=== PATIENT | male | born 1990 | race Caucasian/White ===

== ENCOUNTER 2019-12-22 14:32 | Emergency (ER) | payer BC, SELFPAY ==
[2019-12-22 14:33] VITALS: BP 148/98; PULSE 67; RESP 12; TEMP 36.8; O2SAT 100; BMI 25.7
--- NOTE | 2019-12-22 14:51 | XR_ITS ---
PROCEDURE: XR HAND RT MIN 3V Patient Age:29Y CLINICAL INDICATION: injury hand pain. Injury right hand 3 days ago pain swelling persist. COMPARISON: No exams were available for comparison FINDINGS: Right hand AP lateral and oblique views performed: Right hand reveals no no fracture or dislocation. No lytic or blastic change. There is normal mineralization. The joint spaces are well-preserved. No significant degenerative/arthritic changes. No erosive changes evident. . There is soft tissue throughout the hand-most evident on the lateral view overlying the dorsal aspect of the hand IMPRESSION: No acute findings. . Right hand intact no fracture Dictated by: Cleve Real MD 12/22/2019 17:15 Electronically signed by Cleve Real MD in [place] 12/22/2019 17:15
--- NOTE | 2019-12-22 14:53 | HMH.EDUTC ---
[facility] [place] Clinical Impression: Hand sprain Qualifiers: Encounter type: initial encounter Laterality: right Qualified Code(s): S63.91XA - Sprain of unspecified part of right wrist and hand, initial encounter Disposition: Home, Self-Care Condition on Discharge: Good Instructions: Sprain, How To Perform RICE (Rest, Ice, Compress, Elevate) Additional Instructions: *RICE, Rest the extremity, Ice 15-20 minutes 3-4 times daily, Compress- wear the david wrap as discussed as much as possible to help reduce swelling and pain, Elevate the extremity when at rest *David wrap is for support and help control swelling, use it except in the shower. Be sure that is not to tight but not to loose either *Elevate when resting *Medication as prescribed as needed for pain an inflammation. If need something more can take Tylenol in between doses of Ibuprofen to help Immediately follow up with your family doctor for new or worsening of symptoms, or no noticeable improvement over the next 3-[address] Gastelum office will call you in the morning with appointment Follow up with Dr Gastelum as they schedule Return if needed Straight to ER if any life threatening symptoms Prescriptions: Nabumetone 750 mg PO BID PRN #10 tablet PRN Reason: Moderate Pain Referrals: Provider,MD Anna Marie [Primary Care Provider] - As needed Martina Gastelum MD [Physician] - (Office will call you in the morning with appointment) Time of Disposition: 15:59 Medical Decision Making - Alex Inquiry Pt receiving controlled substance: No Alex was queried for this patient: No Vital Signs: 12/22/19 14:33 Temperature 98.3 F Temperature Source Oral Pulse Rate [Right] 67 Respiratory Rate 12 Blood Pressure [Right Arm] 148/98 H Blood Pressure Mean [Right Arm] 114 02 Sat by Pulse Oximetry 100 Orders (Tests/Meds): ORDERS Category Date Time Status Hand XR right minimum 3 views [XR hand RT min 3V] Stat Exams 12/22/19 14:51 Taken - Radiology Data #1 Image(s): Hand Image Reviewed: Yes I reviewed the patient's radiology image w/the ED provider Preliminary Findings: No Fracture Seen - Physician Consults Physician Consulted: hillary Time: 15:37 Reason -: Orthopedic Eval/Care Comment/Response: Advised place patient in thumb spica splint and office would call him in the morning with appointment date and time Ariel [facility] [place] - General Stated complaint: [id number] right hand injury @ home Time Seen by Provider: 12/22/19 14:53 Mode of Arrival: Ambulatory Limitations: No Limitations Description of Symptoms (Recalled from Triage Doc. by RN): Injury to right hand HEENT Symptoms (Recalled from RN notes): No Resp Symptoms (Recalled from RN notes): No Skin Symptoms (Recalled from RN notes): No MS Symptoms (Recalled from RN notes): Yes Functional Status (Recalled from RN notes): na - History of Present Illness Provider Complaint: Patient states that he slipped and fell on Sunday at home on the pool deck States that ever since he has been having pain and swelling in his right thumb and hand States that he is able to bend fingers but has pain when he tries to move or bend left thumb area States that he was worried that he may have broken something - Related Data Previous Rx's Medication Instructions Recorded Nabumetone 750 mg PO BID PRN #10 tablet 12/22/19 Allergies Allergy/AdvReac Type Severity Reaction Status Date / Time No Known Allergies Allergy Verified 12/22/19 14:51 - Worker's Comp Is this a Worker's Comp case?: No [facility] History - Hepatitis A Screen Drug use history?: No High risk sexual behaviors?: No History of sexually transmitted infection?: No Currently employed?: No Childcare worker?: No Do you have indoor plumbing?: Yes Do you have electricity?: Yes Attestation statement:: This patient has been screened for Hepatitis A risk factors. I have reviewed the patient's past medical history: Yes - Social History
[2019-12-22 16:03] VITALS: BP 145/87; PULSE 60; RESP 20; TEMP 36.8; O2SAT 98
== END 2019-12-22 16:09 | disposition home or self-care (01) ==
PROVIDERS: Emergency Provider Nurse Practitioner
DX: S63.91XA Sprain of unspecified part of right wrist and hand, initial encounter (principal); W01.0XXA Fall on same level from slipping, tripping and stumbling without subsequent striking against object, initial encounter; Y92.019 Unspecified place in single-family (private) house as the place of occurrence of the external cause
CPT/HCPCS: 29125; 73130; 99203

== ENCOUNTER 2019-12-24 09:43 | Outpatient (RCR) | payer BC, SELFPAY | END 2019-12-24 10:20 | disposition home or self-care (01) | LOC: OT 09:43 | PROVIDERS: Visit Provider Orthopaedic Surgery | DX: S60.931A Unspecified superficial injury of right thumb, initial encounter (principal) | CPT/HCPCS: 97763 ==

== ENCOUNTER → 2020-01-08 11:21 | Outpatient (CLI) | payer BC, SELFPAY ==
--- NOTE | 2020-01-08 11:25 | XR_ITS ---
PROCEDURE: XR HAND RT MIN 3V CLINICAL INDICATION: thumb pain COMPARISON: XR HAND RT MIN 3V from 12/22/2019 FINDINGS: No fracture or dislocation. No lytic or blastic change. There is normal mineralization. The joint spaces are well-preserved. No significant degenerative/arthritic changes. No erosive changes evident. Other findings:None. IMPRESSION: No acute findings. Dictated by: Nnamdi Kaiser MD 01/08/2020 13:23 Electronically signed by Nnamdi Kaiser MD in [place] 01/08/2020 13:23
== END ==
PROVIDERS: Visit Provider Orthopaedic Surgery
DX: S69.91XD Unspecified injury of right wrist, hand and finger(s), subsequent encounter (principal)
CPT/HCPCS: 73130